=== PATIENT | female | born 2000 | race Hispanic/Latino ===

== ENCOUNTER 2021-07-20 11:09 | Emergency (ER) | payer OTHER, SELFPAY ==
[2021-07-20 11:19] VITALS: BP 125/92; PULSE 89; RESP 16; TEMP 36.4; O2SAT 99
--- NOTE | 2021-07-20 11:58 | ED.EAR ---
HPI - Ear Problem General Chief complaint: Ear Stated complaint: Ear Pain Time Seen by Provider: 07/20/21 11:58 Source: patient, RN notes reviewed and old records reviewed Mode of arrival: ambulatory Limitations: no limitations History of Present Illness HPI Narrative: 20-year-old female who presents to [facility] with complaints of left ear pain which started on Monday. Patient denies any fevers, chills or sweats, denies any nasal drainage, sore throat or cough. Patient denies any recent swimming or any ear drainage from left ear. Patient states that patient feels fullness in her left ear and some tenderness to outside of her left ear. MD Complaint: ear pain Related Data Allergies Allergy/AdvReac Type Severity Reaction Status Date / Time No Known Allergies Allergy Unverified 03/06/18 18:51 Review of Systems Review of Systems: CONSTITUTIONAL: Denies fever, chills, or sweats. EYES: Denies visual changes, redness, or discharge. ENT: Denies rhinorrhea, congestion, sore throat, positive left ear otalgia, some tragal tenderness. CARDIOVASCULAR: Denies chest pain, palpitations, or edema. RESPIRATORY: Denies cough or dyspnea. GASTROINTESTINAL: Denies abdominal pain, nausea, vomiting, or diarrhea. GENITOURINARY: Denies dysuria or hematuria. SKIN: Denies rash or itching. MUSCULOSKELETAL: Denies back pain, joint pain, or myalgia. NEUROLOGIC: Denies headache, numbness, or weakness. PSYCHIATRIC: Denies anxiety or depression. All systems reviewed & are unremarkable except as noted in HPI and below PMFSH Past Medical History Medical History (Updated 07/23/21 @ 13:15 by Emelina Cook NP) No significant medical problems Surgical History Surgical History (Updated 07/20/21 @ 12:15 by Emelina Cook NP) No history of previous surgery Family History Family History (Updated 07/20/21 @ 12:16 by Emelina Cook NP) Father Hypertension Mother Hypertension Social History Social History (Updated 07/20/21 @ 12:16 by Emelina Cook NP) Smoking status: Never smoker Alcohol intake: current Alcohol use details: rare social Substance use: never Living arrangements: with family Gender identity (if verbalized by the patient): Female Comments At time of signature, agree with nursing past medical, surgical, social and family history. There is no relevant family history pertinent to the presenting complaint Exam Narrative: GENERAL: Well-appearing, well-nourished, and in no acute distress. HEAD: Normocephalic, atraumatic. EYES: PERRLA and EOMI. ENT: Nares clear, no rhinorrhea or epistaxis. Mucous membranes moist.TM right ear normal with good light reflex, TM left ear dull no redness but redness and irritation of left ear canal with no drainage noted, some tragal tenderness noted, throat pink with no lesions or exudates, post nasal drainage noted, no tonsil enlargement. NECK: Supple.no lymphadenopathy CHEST: Clear to auscultation. No respiratory distress.SAO2 99% on room air HEART: Regular rate and rhythm. No murmur heard. Normal peripheral pulses. ABDOMEN: Soft, nontender, nondistended, normal active bowel sounds. EXTREMITIES: Normal range of motion. No edema. SKIN: Warm, dry, no rash. NEURO: No focal deficits. Alert and oriented x3. Course Vital Signs Vital signs: Vital Signs Temperature 36.4 C 07/20/21 11:19 Pulse Rate 89 07/20/21 11:19 Respiratory Rate 16 07/20/21 11:19 Blood Pressure 125/92 H 07/20/21 11:19 Pulse Oximetry 99 07/20/21 11:19 Temperature 36.4 C 07/20/21 11:19 Pulse Rate 89 07/20/21 11:19 Respiratory Rate 16 07/20/21 11:19 Blood Pressure 125/92 H 07/20/21 11:19 Pulse Oximetry 99 07/20/21 11:19 Medical Decision Making Differential Diagnosis Differential Diagnosis: Otalgia left ear, otitis media, otitis externa, URI Medical Records Medical records reviewed: Yes I reviewed the external patient's medical records. Vital Signs Vital Signs: Vital
== END 2021-07-20 12:18 | disposition home or self-care (01) ==
PROVIDERS: Emergency Provider Registered Nurse
DX: H60.502 Unspecified acute noninfective otitis externa, left ear (principal)
CPT/HCPCS: 99213; G0463